=== PATIENT | female | born 1960 | race Caucasian/White ===

== ENCOUNTER 2016-08-30 06:26 | Day surgery (SDC) | payer OTHER ==
[~2016-08-30] VITALS: Ht 170.2 cm; Wt 118.0 kg
[2016-08-30] VITALS (9 sets, daily range): BP systolic 102–125; BP diastolic 61–78; PULSE 63–90; RESP 12–20; O2SAT 95–99
[~2016-08-30 06:26] MED LIST: Lidocaine-Prilo 2.5-2.5% 30 Gm Cream TOPICAL ONE; OXYC1TAB24 PO; TOPI25TA26 PO; tylenol
[2016-08-30] MEDS ORDERED: fentaNYL-PF 50 mCg/mL 2 mL Inj ONE (06:27)
[2016-08-30] MEDS ORDERED: Ondansetron 2 mg/mL 2 mL Inj ONE (06:27)
[2016-08-30] MEDS ORDERED: Dexamethasone 4 mg/mL Inj ONE (06:27)
[2016-08-30] MEDS: Lactated Ringer's 1,000 ML IV SCH ×2 (07:28→08:52)
--- NOTE | 2016-08-30 07:57 | DRSVH ---
PROCEDURE: X-RAY KUB ([id number]) INDICATIONS: RIGHT KIDNEY STONE TECHNIQUE: One view of the abdomen acquired. COMPARISON: [facility], CR, XR KUB, 07/27/2016, 15:07. FINDINGS: Surgical changes and devices: None. Bowel: Bowel gas pattern is normal. Prominent stool throughout the colon. Soft tissues: No suspicious abdominal calcifications. Previously noted right renal calcification figueredo s resolved radiographically. Visualized solid organ contours appear normal in size. Bones: No suspicious bony lesions. IMPRESSION: 1. Interval resolution of previously noted right renal calcification. 2. Prominent stool throughout the colon. Bowel gas pattern is nonobstructive. 3. Findings discussed via telephone with Dr. Pereira at 7:50 AM on 08/30/2016. Dictated by: Gene Umana M.D. on 08/30/2016 at 7:51 Approved by: Gene Umana M.D. on 08/30/2016 at 7:55
[2016-08-30] MEDS ORDERED: Lactated Ringer's 500 ML IV PRN (08:41)
[2016-08-30] MEDS ORDERED: Lactated Ringer's 1,000 ML IV SCH (08:41)
--- NOTE | 2016-08-30 08:41 | PCM.HPANE ---
Patient Data Date of Service: Aug 30, 2016 (0838) Surgeon Admitting Provider: Attending Provider:Gina Pereira MD Primary Care Physician:Zurdo Mary MD Other Provider:Santo Chavarria Anesthesia Reason for Visit Right Kidney Stone Ht/WT & BMI Height (Feet): 5 Height (Inches): 7.00 Weight (Kilograms): 118 Body Mass Index 40.00 Allergies Coded Allergies: Sulfa (Sulfonamide Antibiotics) (Verified Allergy, Severe, hives, 08/24/16) aspirin (Verified Allergy, Severe, hives, 08/24/16) morphine (Verified Allergy, Severe, hives, 08/24/16) Past Anesthesia History Anesthesia History: Denies:: Anesthesia Reactions, Fam Anesthesia Reaction, Fam Malignant Hypertherm, Malignant Hyperthermia Diabetes History Hx Diabetes?: No MRSA MRSA: No Medications Hypertension Medication: No Home Meds Incl Beta Chacho: No Reported Medications [tylenol] No Conflict Check 08/27/16 Topiramate (Topamax)25 Mg [id number] Mg PO DAILY Ref 0 08/24/16 oxyCODONE-Acetaminophen 5-325 mg 1 Each Tablet1 Tab PO Q6H PRN For Pain Ref 0 08/24/16 Discontinued Reported Medications Tamsulosin (Flomax)0.4 Mg Capsule0.4 Mg PO DAILY Ref 0 08/24/16 Ondansetron (Zofran)8 Mg Tablet8 Mg PO Q12H PRN For Nausea 08/24/16 Ibuprofen 200 Mg [id number] Mg PO QID PRN For Pain Ref 0 08/24/16 History History of ENT Problems?: No HEENT History: Denies:: Abnormal Airway Denture Type: None Teeth Condition: Within Normal Limits Hx of Heart Problems?: Yes Cardiovascular History: Denies:: AICD Abdominal Aortic Aneurism Atrial Fibrillation Cardiac Surgery Chest Pain Congestive Heart Failure Coronary Artery Disease Edema Heart Murmur Hypertension Irregular Heartbeat (PT REPORTS PALPITATIONS) Pacemaker Peripheral Vascular Rheumatic Fever Thrombophlebitis Valvular Heart Disease Hx of Respiratory Problem?: Yes Respiratory History: Denies:: Asthma COPD Chest Surgery Cough Dyspnea Emphysema Hemoptysis Pneumonia Pulmonary Embolism Tuberculosis Use of C-PAP Machine (SNORES) Hx Neurologic Problems?: Yes Neurological History: Positive for:: Headaches (Wakes up with headaches) Denies:: Alzheimer's Disease CVA Dementia Dizziness Multiple Sclerosis Parkinson's Disease Seizures TIA Hx of GI Problems?: Yes Hx of Problems?: Yes Genitourinary History: Positive for:: Kidney Stones (HX PRIOR STONES RT STONE=CURRENT PROBLEM C/OF N&V,RT FLANK PAIN) Urinary Tract Infection Denies:: HX of Hemodialysis HX of Peritoneal Dialysis: No Female Hx: Denies:: Currently Pelvic Inflammatory Problems with Breasts? Skin History: Denies:: History Skin Disorders? Pressure Ulcers Hx Musculoskeletal Problems?: Yes Musculoskeletal History: Positive for:: Musculoskeletal Trauma (S/P SHOULDER RPR) Osteoarthritis Denies:: Back Injury (C/O CHRONIC NECK & BACK PAIN ) Degenerative Joint Fibromyalgia Joint Replacement Myasthenia Gravis Rheumatoid Arthritis Systemic Lupus Hx of Psycho/Social Problems?: No Hx Surgeries?: Yes (SHOULDER RPR) Hx Any Other Health Problems?: Yes Other History: Positive for:: Hospitalization (2004) Denies:: Cancer Endocrine Disease Thyroid Disease History Blood Transfusions: Positive for:: Accept Blood Products? Blood Transfusions Denies:: Blood Transfuse Reaction Hx Diabetes: No Hx Alcohol Use: Yes (OCCAS)Hx Substance Use: NoHave You Smoked inLast 12 mo: YesApprox How Many Cigarettes/day: 1-2 Stop/Bang S-Snoring: Do You Snore Loudly: Yes T-Tired: feel tired, fatigued: No O-Obsered: Observed not breath: No P-Blood Pressure: treated: No B- Body Mass Index > 35 kg/m2: Yes A- Age over 50: Yes N- Neck Large Circumference: Yes G- Gender Male: No PARESH Total Score: 4 PARESH Risk Assessment: High Risk, =/>3 Yes Risk Assessment Category Category 1A: Patient has history of documented sleep apnea, and HAS NOT received any narcotic, sedative or anesthesia administration during this stay. Category 1B: Patient has history of documented sleep apnea, and HAS received any narcotic , sedative or anesthesia administration during this stay Category 2: Patient has SUSPECTED Obstructive Sleep Apnea, and HAS received any narcotic , sedative or anesthesia administration during this stay. Category 3: Patient has SUSPECTED Obstructive Sleep Apnea and HAS NOT received narcotic, sedative or anesthesia administration during this stay. Category 4: Outpatient in Procedural Areas with known sleep apnea or who screen positive for High Risk via the STOP/BANG questionnaire. Exam Exam Vital Signs Vital Signs Date Time Temp Pulse Resp B/P Pulse Ox O2 Delivery O2 Flow Rate FiO2 08/30/16 07:08 36.6 72 20 125/69 95 Room Air General Appearance: Alert, Oriented X3, Cooperative HEENT/AIRWAY: MP 1 Lungs: Clear to Auscultation Heart: Exam Unremarkable Meds/Labs/Diagnostics Admission Meds Current Medications Lactated Ringer's (Lr) 1,000 ml @ 120 mls/hr Q8H20M IV Last administered on t 07:28; Start 08/30/16 at 05:00; Stop 08/30/16 at 13:19 Plan Impression Patient chart reviewed, patient interviewed and anesthestic plan with risks, benefits, and alternatives discussed, and informed consent obtained. NPO per Anesth. Guidelines: Yes ASA Physical Status: ASA2 Mod Systemic Disease Anesthetic Plan: GA Bene/Risks/Altern/Consents: Yes HP Complete Prior to Induction: Yes Cezar Clifford MD Aug 30, 2016 08:40
[2016-08-30] MEDS ORDERED: Phenylephrine 10,000 mCg/mL Inj IVPUSH PRN (08:45)
[2016-08-30] MEDS ORDERED: Dexamethasone 4 mg/mL Inj IVPUSH PRN (08:45)
[2016-08-30] MEDS ORDERED: HYDROmorphone 1 mg/mL Inj IVPUSH PRN (08:45)
[2016-08-30] MEDS ORDERED: EPHEDrine Sulfate 50 mg/mL Inj IVPUSH PRN (08:45)
[2016-08-30] MEDS ORDERED: fentaNYL-PF 50 mCg/mL 2 mL Inj IVPUSH PRN (08:45)
[2016-08-30] MEDS ORDERED: Ondansetron 2 mg/mL 2 mL Inj IVPUSH PRN (08:45)
[2016-08-30] MEDS ORDERED: MetoCLOpramide 5 mg/mL 2 mL Inj IVPUSH PRN (08:45)
[2016-08-30] MEDS ORDERED: CeFAZolin Inj 2 gm / 50mL D5W IV ONE (08:51)
[2016-08-30] MEDS ORDERED: Iopamidol-300 50 mL Inj IV ONE (09:07)
[2016-08-30] MEDS ORDERED: Belladonna Alk-Opium 60 mg Rectal Suppository RECTAL ONE ×2 (09:17→09:25)
[2016-08-30] MEDS ORDERED: Ondansetron 8 mg ODT Tablet PO PRN (09:25)
[2016-08-30] MEDS ORDERED: HYDROcodone-APAP 5-325 mg Tablet PO PRN (09:25)
--- NOTE | 2016-08-30 09:30 | PCM.ANEP1 ---
Post Anesthesia PACU Phase 1 Assessment Vital Signs [id number], 98%, 78, 20, 36.0 Vital Signs Date Time Temp Pulse Resp B/P Pulse Ox O2 Delivery O2 Flow Rate FiO2 08/30/16 09:25 36.0 08/30/16 07:08 36.6 72 20 125/69 95 Room Air Anesthetic Administered: GA Level of Alertness: Awake, talking ZARCO's with Equal Strength: Yes Pain: No Pain Scale Score: 0 Nausea or Vomiting: No CV Function & Hydration Stable: Yes Airway Device: none Oxygen Delivery: Simple Mask Lungs: Clear to Auscultation Dermatome Level: Full Sensation Summary uneventful GA PACU Phase 2 Assessment Complications: No Follow up Care: No Patient Instructions Provided: N/A Cezar Clifford MD Aug 30, 2016 09:30
[2016-08-30] MEDS ORDERED: HYDROmorphone 0.5 mg/0.5 mL iSecure Syringe ONE (09:47)
--- NOTE | 2016-08-31 13:50 | OP ---
[address] [address] OPERATIVE REPORT PATIENT: KEELY MCCORD : 1960 MR#: [id number] ADMIT: 08/30/2016 JOB ID: [id number] DATE OF SURGERY: 08/30/2016 SURGEON: Gina Pereira MD. PROCEDURE: Right-sided double-J stent placement. Right-sided retrograde pyelogram. ANESTHESIA: General. PREOPERATIVE DIAGNOSIS(ES): Right-sided ureteral calculus. POSTOPERATIVE DIAGNOSIS(ES): Right-sided ureteral calculus. INDICATIONS: The patient is a 55-year-old woman with a proximal 6 mm ureteral calculus, quite symptomatic. Electric shockwave treatment for the stone. Stone, when it was high up, was quite easily visible. However, the day of her presentation for surgery, KUB, we were unable to see the stone at all. She was counseled about risks and benefits of treatment options from cancelling the surgery and repeating a CAT scan to assess the location of the stone, but as she was quite symptomatic she elected to proceed with retrograde pyelogram and double-J stent placement if indicated. Therefore, this is what we set up. PROCEDURE IN DETAIL: After appropriate informed consent was obtained, the patient was brought to the operating room. She received IV antibiotics prior to onset of the procedure. SCDs were placed. Adequate general anesthesia was induced. She has carefully placed in the dorsal lithotomy position. All pressure points were carefully padded. Cleaned, prepped, and draped in the usual sterile fashion. Rigid scope was introduced in the patient's bladder which was drained. The right-sided ureteral orifice was orthotopic and normal in appearance. We cannulated the right UO with an open-ended catheter. Retrograde pyelogram revealed fundal ureter up to a location just caudad to the inferior SI joint where there appeared to be a filling defect and the ureter wiped out above this. This certainly was compatible with her clinical history of ongoing symptomatic stone. We were able to get a wire past this location and then a 6-[place] x 24 cm double-J stent up and over into good position with curl in the renal pelvis and a curl in the patient's bladder. The stone as ever was not visible on fluoroscopy. However, we had seen it with a retrograde pyelogram. It was curled in the patient's bladder. We drained the bladder. The patient was awakened and taken in stable condition to the postanesthesia care unit.
== END 2016-08-30 23:59 | disposition home or self-care (01) ==
LOC: SAS 06:26
PROVIDERS: ATTEND Urology
DX: N20.1 Calculus of ureter (principal); F17.210 Nicotine dependence, cigarettes, uncomplicated
CPT/HCPCS: 52332; 74000; C2617; J0690; J1100; J1170; J2250; J2405; J2765; J3010; J7120

== ENCOUNTER 2016-09-05 06:43 | Day surgery (SDC) | payer OTHER ==
[~2016-09-05] VITALS: Ht 170.2 cm; Wt 118.0 kg
[2016-09-05] VITALS (7 sets, daily range): BP systolic 140–163; BP diastolic 62–96; PULSE 61–82; RESP 13–17; O2SAT 95–99
[~2016-09-05 06:43] MED LIST changes: +CeFAZolin 2 Gm/50 mL D5W IV Premix IV ONE; +Lactated Ringer's 1,000 ML IV SCH; -Lidocaine-Prilo 2.5-2.5% 30 Gm Cream TOPICAL ONE
[2016-09-05] MEDS ORDERED: fentaNYL-PF 50 mCg/mL 2 mL Inj ONE (06:44)
[2016-09-05] MEDS ORDERED: Dexamethasone 4 mg/mL Inj ONE (06:44)
[2016-09-05] MEDS ORDERED: Propofol 10,000 mCg/mL 20 mL Inj ONE (06:44)
[2016-09-05] MEDS ORDERED: Ondansetron 2 mg/mL 2 mL Inj ONE (06:44)
--- NOTE | 2016-09-05 08:04 | PCM.HPANE ---
Patient Data Date of Service: Sep 05, 2016 Surgeon Admitting Provider: Attending Provider:Gina Pereira MD Primary Care Physician:Zurdo Mary MD Other Provider:Santo Chavarria Anesthesia Reason for Visit Right Kidney Stone Ht/WT & BMI Height (Feet): 5 Height (Inches): 7.00 Weight (Kilograms): 118.000 Body Mass Index 40.00 Allergies Coded Allergies: Sulfa (Sulfonamide Antibiotics) (Verified Allergy, Severe, hives, 08/24/16) aspirin (Verified Allergy, Severe, hives, 08/24/16) morphine (Verified Allergy, Severe, hives, 08/24/16) Past Anesthesia History Anesthesia History: Denies:: Abnormal Airway, Anesthesia Reactions, Fam Anesthesia Reaction, Fam Malignant Hypertherm, Malignant Hyperthermia Diabetes History Hx Diabetes?: No MRSA MRSA: No Medications Home Meds Incl Beta Chacho: No Reported Medications Topiramate (Topamax)25 Mg [id number] Mg PO DAILY Ref 0 08/24/16 oxyCODONE-Acetaminophen 5-325 mg 1 Each Tablet1 Tab PO Q6H PRN For Pain Ref 0 08/24/16 Discontinued Reported Medications [tylenol] No Conflict Check 08/27/16 History History of ENT Problems?: No HEENT History: Denies:: Abnormal Airway Denture Type: None Teeth Condition: Within Normal Limits Hx of Heart Problems?: Yes Cardiovascular History: Positive for:: Irregular Heartbeat (PT REPORTS PALPITATIONS) Denies:: AICD Abdominal Aortic Aneurism Atrial Fibrillation Cardiac Surgery Chest Pain Congestive Heart Failure Edema Heart Murmur Hypertension Pacemaker Rheumatic Fever Thrombophlebitis Valvular Heart Disease Hx of Respiratory Problem?: No Respiratory History: Denies:: Asthma COPD Chest Surgery Cough Dyspnea Emphysema Hemoptysis Pneumonia Pulmonary Embolism Tuberculosis Use of C-PAP Machine Hx Neurologic Problems?: Yes Neurological History: Positive for:: Headaches (Wakes up with headaches) Denies:: Alzheimer's Disease CVA Dementia Dizziness Multiple Sclerosis Parkinson's Disease Seizures Hx of GI Problems?: No Hx of Problems?: Yes Genitourinary History: Positive for:: Kidney Stones (right stone current admission- prev surgery here 08/30/16) Urinary Tract Infection Denies:: HX of Hemodialysis HX of Peritoneal Dialysis: No Female Hx: Denies:: Currently Pelvic Inflammatory Problems with Breasts? Skin History: Denies:: History Skin Disorders? Pressure Ulcers Hx Musculoskeletal Problems?: Yes Musculoskeletal History: Positive for:: Musculoskeletal Trauma (hx shoulder surgery) Denies:: Back Injury (chronic neck/back pain) Degenerative Joint Joint Replacement Systemic Lupus Hx of Psycho/Social Problems?: No Hx Surgeries?: Yes (shoulder, cysto) Hx Any Other Health Problems?: Yes Other History: Positive for:: Hospitalization (2004) Denies:: Cancer Endocrine Disease Thyroid Disease History Blood Transfusions: Positive for:: Blood Transfusions Denies:: Blood Transfuse Reaction Hx Diabetes: No Hx Alcohol Use: Yes (OCCAS)Hx Substance Use: No Smoking Status: Current Some Day Smoker Have You Smoked inLast 12 mo: Yes Stop/Bang Treated for Sleep Apnea?: No Do You Have a CPAP Machine?: No S-Snoring: Do You Snore Loudly: Yes T-Tired: feel tired, fatigued: No O-Obsered: Observed not breath: No P-Blood Pressure: treated: No B- Body Mass Index > 35 kg/m2: Yes A- Age over 50: Yes N- Neck Large Circumference: Yes G- Gender Male: No PARESH Total Score: 4 PARESH Risk Assessment: High Risk, =/>3 Yes PARESH Category 2: Yes (4 Stop-BANG) Risk Assessment Category Category 1A: Patient has history of documented sleep apnea, and HAS NOT received any narcotic, sedative or anesthesia administration during this stay. Category 1B: Patient has history of documented sleep apnea, and HAS received any narcotic , sedative or anesthesia administration during this stay Category 2: Patient has SUSPECTED Obstructive Sleep Apnea, and HAS received any narcotic , sedative or anesthesia administration during this stay. Category 3: Patient has SUSPECTED Obstructive Sleep Apnea and HAS NOT received narcotic, sedative or anesthesia administration during this stay. Category 4: Outpatient in Procedural Areas with known sleep apnea or who screen positive for High Risk via the STOP/BANG questionnaire. Exam Exam Vital Signs Vital Signs Date Time Temp Pulse Resp B/P Pulse Ox O2 Delivery O2 Flow Rate FiO2 09/05/16 07:23 36.7 78 16 140/62 95 Room Air General Appearance: Alert, Oriented X3, Cooperative, No Acute Distress, Mild Distress (pain) HEENT/AIRWAY: MP 2 (normal TM, normal mouth opening) Lungs: Clear to Auscultation Heart: Regular Rate/Rhythm, No Murmurs/Rubs/Gallops Plan Impression Patient chart reviewed, patient interviewed and anesthestic plan with risks, benefits, and alternatives discussed, and informed consent obtained. NPO per Anesth. Guidelines: Yes ASA Physical Status: ASA2 Mod Systemic Disease Anesthetic Plan: GA Bene/Risks/Altern/Consents: Yes HP Complete Prior to Induction: Yes Joe Diop DO Sep 05, 2016 08:04
[2016-09-05] MEDS ORDERED: Ondansetron 8 mg ODT Tablet PO PRN (08:25)
[2016-09-05] MEDS ORDERED: HYDROcodone-APAP 5-325 mg Tablet PO PRN (08:25)
[2016-09-05] MEDS ORDERED: HYDROmorphone 1 mg/mL Inj IVPUSH PRN (08:45)
[2016-09-05] MEDS ORDERED: Lactated Ringer's 500 ML IV PRN (08:45)
[2016-09-05] MEDS ORDERED: Phenylephrine 10,000 mCg/mL Inj IVPUSH PRN (08:45)
[2016-09-05] MEDS ORDERED: Dexamethasone 4 mg/mL Inj IVPUSH PRN (08:45)
[2016-09-05] MEDS ORDERED: MetoCLOpramide 5 mg/mL 2 mL Inj IVPUSH PRN (08:45)
[2016-09-05] MEDS ORDERED: Lactated Ringer's 1,000 ML IV SCH (08:45)
[2016-09-05] MEDS ORDERED: Ondansetron 2 mg/mL 2 mL Inj IVPUSH PRN (08:45)
[2016-09-05] MEDS ORDERED: EPHEDrine Sulfate 50 mg/mL Inj IVPUSH PRN (08:45)
[2016-09-05] MEDS ORDERED: fentaNYL-PF 50 mCg/mL 2 mL Inj IVPUSH PRN (08:45)
[2016-09-05] MEDS ORDERED: Iopamidol-300 50 mL Inj IV ONE (09:11)
--- NOTE | 2016-09-05 10:46 | PCM.ANEP1 ---
Post Anesthesia PACU Phase 1 Assessment Date of Service: Sep 05, 2016 Vital Signs Vital Signs Date Time Temp Pulse Resp B/P Pulse Ox O2 Delivery O2 Flow Rate FiO2 09/05/16 10:36 36.6 71 16 144/77 98 Room Air 09/05/16 10:25 69 14 152/75 98 09/05/16 10:10 65 14 150/88 98 09/05/16 10:06 61 13 157/88 97 Room Air 09/05/16 10:01 65 16 163/71 98 Room Air 09/05/16 09:55 36.8 82 17 157/96 99 Room Air 09/05/16 07:23 36.7 78 16 140/62 95 Room Air Anesthetic Administered: GA Level of Alertness: Awake, talking Pain: Yes Nausea or Vomiting: Yes (nausea) CV Function & Hydration Stable: Yes Airway Device: Oxygen Delivery: Room Air Lungs: Clear to Auscultation PACU Phase 2 Assessment Complications: No Follow up Care: No Patient Instructions Provided: Yes Joe Diop DO Sep 05, 2016 10:46
--- NOTE | 2016-09-05 17:05 | DRSVH ---
PROCEDURE: X-RAY RETROGRADE UROGRAPHY INDICATIONS: C-ARM ASSISTED RIGHT STENT PLACEMENT TECHNIQUE: 3 intra-operative images acquired by the Urology service. COMPARISON: None. FINDINGS: Limited images obtained using mobile image intensifier demonstrates placement of a uretera l stent. IMPRESSION: 3 images obtained with a mobile image intensifier demonstrate placement of a ureteral berta nt. Dictated by: Gene Umana M.D. on 09/05/2016 at 17:03 Approved by: Gene Umana M.D. on 09/05/2016 at 17:03
[2016-09-06] MEDS ORDERED: CeFAZolin 2 Gm/50 mL D5W IV Premix IV ONE (06:00)
--- NOTE | 2016-09-06 21:15 | OP ---
[address] [address] OPERATIVE REPORT PATIENT: KEELY MCCORD : 1960 MR#: [id number] ADMIT: 09/05/2016 JOB ID: [id number] DATE OF SURGERY: 09/05/2016 PROCEDURE: 1. Cystoscopy with right-sided ureteroscopy. 2. Laser lithotripsy. 3. Right-sided double-J stent placement. 4. Removal and replacement, right-sided retrograde pyelogram. SURGEON: Gina Pereira MD ANESTHESIA: General. PREOPERATIVE DIAGNOSIS(ES): Right-sided ureteral calculus. POSTOPERATIVE DIAGNOSIS(ES): Right-sided ureteral calculus. INDICATIONS: The patient is a pleasant, 55-year-old woman who had been initially set up for right-sided shockwave lithotripsy for a 6 mm proximal ureteral stone, however, on the date she came in, the stone was no longer visible at all. She was taken to the operating room and retrograde pyelogram revealed the stone still not visible, but on retrograde filling defect was clear with dilated ureter above, below the right-sided SI joint. She was stented at the time and set up for ureteroscopy. PROCEDURE IN DETAIL: After appropriate informed consent was obtained, the patient was brought to the operating room. She received IV antibiotics prior to the procedure. SCDs were placed. Adequate general anesthesia was induced. She was carefully placed in dorsal lithotomy position. All pressure points carefully padded. Cleaned, prepped, and draped in the usual sterile fashion. Rigid scope was introduced into the patient's bladder. Right-sided double-J stent was grasped and brought out the patient's meatus. A wire was passed through the stent up into good position fluoroscopically in the kidney, and the stent itself was removed. We then used the rigid ureteroscope to enter the patient's ureter. We were able to maneuver up to the level of the stone. There was considerable edema. The stone itself was lasered using the 273 micron laser fiber, broken up into small pieces. Several sales representative malt liquors ones were handed off for stone analysis from the remainder of the patient's bladder. At the termination of the procedure, all stone fragments larger than 1 mm were removed. There was enough edema from the stone impaction that we elected to go ahead and replace the double-J stent. The safety wire which had been left after it was initially placed was used to backload through the scope and a 6-[place] x 24 cm double-J stent was advanced through the scope, over the wire, into good position with a curl in the patient's renal pelvis and a curl in the patient's bladder visually. The string was left long outside of the patient's body. The bladder was drained, irrigated out and several clots were removed. She tolerated the procedure well, was awakened and taken in stable condition to the postanesthesia care unit.
== END 2016-09-05 23:59 | disposition home or self-care (01) ==
LOC: SAS 06:43
PROVIDERS: ATTEND Urology
DX: N20.0 Calculus of kidney (principal); R00.2 Palpitations; R51 Headache; F17.210 Nicotine dependence, cigarettes, uncomplicated; Z88.2 Allergy status to sulfonamides; Z88.5 Allergy status to narcotic agent; Z88.6 Allergy status to analgesic agent; Z79.899 Other long term (current) drug therapy
CPT/HCPCS: 52356; 74420; 82360; C2617; J0690; J1100; J1885; J2250; J2405; J3010; J7120; Q9967